=== PATIENT | female | born 1990 | race Caucasian/White ===

== ENCOUNTER 2017-10-25 15:50 | Inpatient (IN) | payer OTHER ==
[~2017-10-25] VITALS: Ht 152.4 cm; Wt 72.6 kg
[2017-10-25] MEDS ORDERED: PRENATA CHEWAB1 EACH (16:10)
[2017-10-25] MEDS ORDERED: VITAMIN D34000 UNIT PO (16:11)
[2017-10-25] MEDS ORDERED: ONDA8 PO (16:11)
[2017-10-25 16:31] LABS: BASOPHILS ABSOLUTE AUTO 0.05 K/mm3 (0.00-0.23); BASOPHILS PERCENT AUTO 0 % (0-2); EOSINOPHILS ABSOLUTE AUTO 0.05 K/mm3 (0.00-0.68); EOSINOPHILS PERCENT AUTO 0 % (0-6); Hematocrit 36.8 % (33.0-51.0); Hemoglobin 12.1 g/dL (11.5-16.0); IMMATURE GRAN ABSOLUTE AUTO 0.15 K/mm3 (0.00-0.10); IMMATURE GRAN PERCENT AUTO 1 % (0-1); LYMPHOCYTES ABSOLUTE AUTO 2.86 K/mm3 (0.84-5.20); LYMPHOCYTES PERCENT AUTO 26 % (21-46); MONOCYTES ABSOLUTE AUTO 0.67 K/mm3 (0.16-1.47); MONOCYTES PERCENT AUTO 6 % (4-13); Mean Corpuscular HGB Conc 32.9 g/dL (31.5-36.5); Mean Corpuscular Volume 82 fL (80-100); Mean Platelet Volume 10.5 fL (9.1-12.4); NEUTROPHILS ABSOLUTE AUTO 7.39 K/mm3 (1.96-9.15); NEUTROPHILS PERCENT AUTO 66 % (41-73); Platelet Count 271 K/mm3 (150-400); RDW Coefficient Variation 14.6 % (11.7-14.2); RDW Standard Deviation 42.5 fL (35.1-46.3); Red Blood Cell Count 4.48 M/mm3 (3.80-5.20); White Blood Cell Count 11.17 K/mm3 (4.00-11.30)
[2017-10-26 09:41] LABS: PCO2 Cord - Arterial 67.6 mmHg (40-50); PCO2 Cord - Venous 51.4 mmHg (40-50); PO2 Cord - Arterial 21.2 mmHg (16-20); PO2 Cord - Venous 24.6 mmHg (28-32); pH Cord - Arterial 7.15 (7.28-7.35); pH Umbilical Cord - Venous 7.23 (7.26-7.35)
[2017-10-27 05:39] LABS: BASOPHILS ABSOLUTE AUTO 0.03 K/mm3 (0.00-0.23); BASOPHILS PERCENT AUTO 0 % (0-2); EOSINOPHILS ABSOLUTE AUTO 0.11 K/mm3 (0.00-0.68); EOSINOPHILS PERCENT AUTO 1 % (0-6); Hematocrit 27.1 % (33.0-51.0); Hemoglobin 8.8 g/dL (11.5-16.0); IMMATURE GRAN PERCENT AUTO 1 % (0-1); LYMPHOCYTES ABSOLUTE AUTO 2.48 K/mm3 (0.84-5.20); LYMPHOCYTES PERCENT AUTO 23 % (21-46); MONOCYTES ABSOLUTE AUTO 0.69 K/mm3 (0.16-1.47); MONOCYTES PERCENT AUTO 6 % (4-13); Mean Corpuscular HGB 27.1 pg (26.0-34.0); Mean Corpuscular HGB Conc 32.5 g/dL (31.5-36.5); Mean Corpuscular Volume 83 fL (80-100); Mean Platelet Volume 10.2 fL (9.1-12.4); NEUTROPHILS ABSOLUTE AUTO 7.34 K/mm3 (1.96-9.15); NEUTROPHILS PERCENT AUTO 68 % (41-73); Platelet Count 145 K/mm3 (150-400); RDW Coefficient Variation 14.9 % (11.7-14.2); Red Blood Cell Count 3.25 M/mm3 (3.80-5.20); White Blood Cell Count 10.75 K/mm3 (4.00-11.30)
[2017-10-27] MEDS ORDERED: Percocet 5-3251 EACH PO (09:06)
[2017-10-27] MEDS ORDERED: PRAHYD1AEA TOP (09:07)
== END 2017-10-27 13:08 | disposition home or self-care (01) | DRG 775 ==
LOC: BC 15:50
PROVIDERS: Nurse Practitioner Obstetrics & Gynecology; Obstetrics & Gynecology
PROC: 10D07Z6 Extraction of Products of Conception, Vacuum, Via Natural or Artificial Opening (ICD-10-PCS; principal; 2017-10-26)
PROC: 0KQM0ZZ Repair Perineum Muscle, Open Approach (ICD-10-PCS; 2017-10-26)
PROC: 0W8NXZZ Division of Female Perineum, External Approach (ICD-10-PCS; 2017-10-26)
PROC: 3E0P7VZ Introduction of Hormone into Female Reproductive, Via Natural or Artificial Opening (ICD-10-PCS; 2017-10-26)
PROC: 3E0R3BZ Introduction of Anesthetic Agent into Spinal Canal, Percutaneous Approach (ICD-10-PCS; 2017-10-26)
DX: O48.0 Post-term pregnancy (principal); Z3A.40 40 weeks gestation of pregnancy; Z37.0 Single live birth; O69.81X0 Labor and delivery complicated by cord around neck, without compression, not applicable or unspecified; O70.1 Second degree perineal laceration during delivery
CPT/HCPCS: 36415; 51702; 82803; 85025; 86900; 86901; J1885; J2405; J2590; J7120

== ENCOUNTER 2019-05-06 05:22 | Inpatient (IN) | payer OTHER ==
[~2019-05-06] VITALS: Ht 152.4 cm; Wt 70.0 kg
[~2019-05-06 05:22] MED LIST: ONDA8 PO; PRAHYD1AEA TOP; PRENATA CHEWAB1 EACH; Percocet 5-3251 EACH PO; VITAMIN D34000 UNIT PO
[2019-05-06] MEDS ORDERED: Heartburn Relie10 MG PO (05:52)
[2019-05-06 05:57] LABS: BASOPHILS ABSOLUTE AUTO 0.04 K/mm3 (0.00-0.23); BASOPHILS PERCENT AUTO 0 % (0-2); EOSINOPHILS ABSOLUTE AUTO 0.09 K/mm3 (0.00-0.68); EOSINOPHILS PERCENT AUTO 1 % (0-6); Hematocrit 36.8 % (33.0-51.0); Hemoglobin 11.6 g/dL (11.5-16.0); IMMATURE GRAN ABSOLUTE AUTO 0.15 K/mm3 (0.00-0.10); IMMATURE GRAN PERCENT AUTO 1 % (0-1); LYMPHOCYTES ABSOLUTE AUTO 3.17 K/mm3 (0.84-5.20); LYMPHOCYTES PERCENT AUTO 28 % (21-46); MONOCYTES ABSOLUTE AUTO 0.75 K/mm3 (0.16-1.47); MONOCYTES PERCENT AUTO 7 % (4-13); Mean Corpuscular HGB 24.6 pg (26.0-34.0); Mean Corpuscular HGB Conc 31.5 g/dL (31.5-36.5); Mean Corpuscular Volume 78 fL (80-100); Mean Platelet Volume 9.8 fL (9.1-12.4); NEUTROPHILS ABSOLUTE AUTO 7.17 K/mm3 (1.96-9.15); NEUTROPHILS PERCENT AUTO 63 % (41-73); Platelet Count 289 K/mm3 (150-400); RDW Coefficient Variation 16.6 % (11.7-14.2); RDW Standard Deviation 47.6 fL (35.1-46.3); Red Blood Cell Count 4.71 M/mm3 (3.80-5.20); White Blood Cell Count 11.37 K/mm3 (4.00-11.30)
[2019-05-06 18:47] LABS: PCO2 Cord - Venous 51 mmHg (40-50); PO2 Cord - Venous 22.1 mmHg (28-32); pH Umbilical Cord - Venous 7.26 (7.26-7.35)
--- NOTE | 2019-05-06 19:02 | NUR ---
05/06/191901 Nichole Nielsen PT ENTERED OR FOR STAT SECTION WITH SHADI ALREADY IN PLACE. VIABLE FEMALE WAS DELIVERED AT 1827 WITH A NUCHAL X4. CORD BLOOD WAS GIVEN TO EARLENE PEÑA. CORD SEGMENT WAS GIVEN TO RT LEANNE FOR CORD GASSES.
[2019-05-07 05:10] LABS: BASOPHILS ABSOLUTE AUTO 0.04 K/mm3 (0.00-0.23); BASOPHILS PERCENT AUTO 0 % (0-2); EOSINOPHILS ABSOLUTE AUTO 0.03 K/mm3 (0.00-0.68); EOSINOPHILS PERCENT AUTO 0 % (0-6); Hematocrit 26.2 % (33.0-51.0); Hemoglobin 8.2 g/dL (11.5-16.0); IMMATURE GRAN ABSOLUTE AUTO 0.14 K/mm3 (0.00-0.10); IMMATURE GRAN PERCENT AUTO 1 % (0-1); LYMPHOCYTES ABSOLUTE AUTO 2.19 K/mm3 (0.84-5.20); LYMPHOCYTES PERCENT AUTO 13 % (21-46); MONOCYTES PERCENT AUTO 8 % (4-13); Mean Corpuscular HGB 24.7 pg (26.0-34.0); Mean Corpuscular HGB Conc 31.3 g/dL (31.5-36.5); Mean Corpuscular Volume 79 fL (80-100); Mean Platelet Volume 9.8 fL (9.1-12.4); NEUTROPHILS ABSOLUTE AUTO 13.05 K/mm3 (1.96-9.15); NEUTROPHILS PERCENT AUTO 78 % (41-73); Platelet Count 205 K/mm3 (150-400); RDW Coefficient Variation 16.7 % (11.7-14.2); RDW Standard Deviation 48.1 fL (35.1-46.3); Red Blood Cell Count 3.32 M/mm3 (3.80-5.20); White Blood Cell Count 16.75 K/mm3 (4.00-11.30)
[2019-05-07 18:56] LABS: Hematocrit 27.3 % (33.0-51.0); Hemoglobin 8.5 g/dL (11.5-16.0); Mean Corpuscular HGB 24.8 pg (26.0-34.0); Mean Corpuscular HGB Conc 31.1 g/dL (31.5-36.5); Mean Corpuscular Volume 80 fL (80-100); Mean Platelet Volume 9.5 fL (9.1-12.4); Platelet Count 209 K/mm3 (150-400); Red Blood Cell Count 3.43 M/mm3 (3.80-5.20); White Blood Cell Count 15.19 K/mm3 (4.00-11.30)
[2019-05-08] MEDS ORDERED: IBU800 MG PO (08:47)
[2019-05-08] MEDS ORDERED: ONDA4 PO (08:48)
[2019-05-08] MEDS ORDERED: Percocet 5-3251 EACH PO (08:49)
[2019-05-08] MEDS ORDERED: ROXICODONE5 MG PO (08:50)
--- NOTE | 2019-05-08 17:06 | NUR ---
DISCHARGE INSTRUCTIONS, WRITTEN AND VERBAL, GIVEN TO PT AND AZAEL. ANSWERED ALL QUESTIONS AND CONCERNS. IV DISCONTINUED. FOLLOW UP APPOINTMENT SCHEDULED.
--- NOTE | 2019-05-08 20:43 | NUR ---
PT D/C'D HOME WITH NB. PT AWARE OF NB AND FOLLOW UP APPOINTMENTS. PT VERBALIZED UNDERSTANDING OF D/C INSTRUCTIONS. BLEEDING AND VITAL SIGNS ALL WITH NORMAL LIMITS TIME IF D/CING. PT GIVEN INCENTIVE SPIROMETER TO TAKE HOME, PT COMFORTABLE USING. PT HAS [facility] PHONE NUMBER AND KNOWS TO CALL IF ANY QUESTIONS OR CONCERNS ARISE WITH HER OR BABY.
== END 2019-05-08 20:06 | disposition home or self-care (01) | DRG 788 ==
LOC: OBS 05:22 → BC 05:23 → OBS 05:38 → BC 05:40
PROVIDERS: Nurse Practitioner Obstetrics & Gynecology; ADMIT Obstetrics & Gynecology
PROC: 10907ZC Drainage of Amniotic Fluid, Therapeutic from Products of Conception, Via Natural or Artificial Opening (ICD-10-PCS; 2019-05-06)
PROC: 10D00Z1 Extraction of Products of Conception, Low, Open Approach (ICD-10-PCS; principal; 2019-05-06 18:30)
DX: O69.1XX0 Labor and delivery complicated by cord around neck, with compression, not applicable or unspecified (principal); O76 Abnormality in fetal heart rate and rhythm complicating labor and delivery; O62.1 Secondary uterine inertia; Z37.0 Single live birth; Z3A.39 39 weeks gestation of pregnancy
CPT/HCPCS: 36415; 51702; 82803; 85025; 85027; 86850; 86900; 86901; J0690; J0694; J1885; J2210; J2370; J2405; J2590; J2765; J3010; J7120

== ENCOUNTER → 2021-07-08 | Outpatient (CLI) | payer OTHER ==
[~2021-07-08] MED LIST changes: +Heartburn Relie10 MG PO; +IBU800 MG PO; +ONDA4 PO; +ROXICODONE5 MG PO
== END | disposition home or self-care (01) ==
LOC: LAB SHORT 15:20
DX: L08.0 Pyoderma (principal)
CPT/HCPCS: 87070

== ENCOUNTER 2024-10-11 06:43 | Day surgery (SDC) | payer OTHER ==
[~2024-10-11] VITALS: Ht 152.4 cm; Wt 65.6 kg
[~2024-10-11 06:43] MED LIST changes: +AVIANE-28 TABL1 EACH PO; +IBUP200 PO; +IMITREX25 MG PO; +LEVSOD25 PO; +TRAZ50 PO; +VIENVA PO; +[UNRECOGNIZED DRUG - OTHER] PO
[2024-10-11] MEDS ORDERED: propofoL 40 ML IV ONE (07:41)
[2024-10-11] MEDS ORDERED: Lactated Ringer's 1,000 ML IV ONE ×2 (07:41→07:46)
[2024-10-11 09:03] VITALS: BP 104/66
== END 2024-10-11 08:56 | disposition home or self-care (01) ==
LOC: ORSCSDS 06:43
PROVIDERS: Surgery
PROC: 0DJD8ZZ Inspection of Lower Intestinal Tract, Via Natural or Artificial Opening Endoscopic (ICD-10-PCS; principal; 2024-10-11 08:00)
DX: Z12.11 Encounter for screening for malignant neoplasm of colon (principal); Z80.0 Family history of malignant neoplasm of digestive organs; E03.9 Hypothyroidism, unspecified; Z79.899 Other long term (current) drug therapy
CPT/HCPCS: J2704; J7120